=== PATIENT | female | born 1940 | race Caucasian/White ===

== ENCOUNTER 2023-08-07 14:42 | Outpatient (AMB) | payer OTHER, SELFPAY ==
--- NOTE | 2023-08-07 15:09 | MHC.OFFVIS ---
Intake Vital Signs 08/07/23 15:11 Weight 197 lb 4 oz BP 130/62 Blood Pressure Location Rt brachial Position Sitting Pulse 63 Pulse Source Pulse Oximeter Pulse Oximetry (%) 97 Oxygen Delivery Method Room Air Intake Visit Reasons: NPV-Dementia/stroketia/headaches/sleep Intake Note: Pt presents today c concerns of dementia x3 years. Pts daughter notices it worsens the most at night. Pt is not sleeping well at night but does sleep during the day. Pt has shown no decrease to appetite . Allergies No Known Allergies Allergy (Verified 08/07/23 15:15) Medication List - Last Reconciled 08/07/23 by LUCERO Hearn atorvastatin 80 mg PO DAILY losartan 100 mg PO DAILY memantine 10 mg PO DAILY omeprazole 20 mg PO DAILY propranolol 20 mg PO DAILY HPI HPI Comments History of Present Illness Details Right-handed 82-yr-old female presents for neurological evaluation of: cognitive difficulties. Accompanied by pt's dtr, Yaneth. Pt's dtr states that pt had a stroke about 5 yrs ago w/o any significant residual effects. Then, about 3yrs ago, pt started having cognitive difficulties.. She started forgetting small things. Then over time, she started saying things that were not making sense, repeating herself. Now, she can have good and bad days, 2-3 days a week she is much more confused. She used to live in [place], but moved in with her dtr about 6 months ago here in [facility]. She lives with her family. She needs assist with ADLs. At times, she does not want to take baths or showers. She no longer cooks- as she leaving the stove on- causing things to burn. She needs assist with her finances. She has had falls when she was in [place]- she would take a shower at 3-4 am. But not since. She does not like the colder weather here. She is prone to sleep during the day and is more awake at night. She can easily become frustrated. She is not physically active. She states she eats and drinks well. Patient endorses: She has had migraine since her late 20s- now has a daily headache and 3 migraine headache days per week. She takes 2 Tylenol bid every day. She has difficulty explaining- but describes headache as strong pain, some vision changes, photo/phonophobia, nausea. She is sometimes dizzy, especially if standing. She has urinary incontinence- states does not make it to the bathroom in time. About 1 yr ago when she was visiting her dtr here, she had an acute episode of staring off, eyes rolled, and foaming at the mouth. Per dtr- ER did not know what caused this. EEG was normal. 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 but she went back to [place] and never saw neurology. She did see cardiology- they did not think there was any cardiogenic etiology however donepazil and amlodipine were stopped. She has not had another episode since. Sometimes her speech will turn very slow. She was born in [place]. She reports normal early growth and development. She left school in 6th grade to help with the housework and childcare. 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 [place] moved to the [place] ago. Maybe she worked for a year here in the [place]. She believes her father had dementia. 07/2023, MRI Brain W+W/O Contrast FINDINGS: The flow voids through the kiana of [place] are maintained, and there is no restricted diffusion. Multiple small foci of susceptibility artifact are distributed throughout the cerebral hemispheres predominantly involving hahn-white matter interfaces. Sparing of the basal ganglia and thalami. A chronic right corpus striatal infarct is present, and there are mild-moderate patchy and discrete T2 bright foci distributed throughout the supratentorial white matter. Mild prominence of the ventricles and subarachnoid spaces. No mass effect or extra-axial fluid collection. The major dural venous sinuses are patent. There is a 4 mm x 3 mm anteriorly and superiorly oriented outpouching of contrast enhancement arising from the anterior communicating artery. The visualized extracranial soft tissues and orbital structures are unremarkable. IMPRESSION: 1. No acute infarct. 2. Chronic right corpus striatal infarct. 3. Mild-moderate supratentorial white matter signal abnormality compatible with chronic microangiopathic/small vessel ischemic change. 4. 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 Neurointerventional follow-up is recommended. 5. Multiple small foci of susceptibility artifact are present within the cerebral hemispheres with sparing of the basal ganglia and thalami. While these may represent chronic microhemorrhage related to hypertension, the distribution of lesions suggests amyloid angiopathy. 07/2023, Echocardiogram Summary 1. The left ventricle is normal in size, wall thickness and systolic function. The ejection fraction is 60-65%. No regional wall motion abnormalities seen. Unable to assess diastolic function due to technical limitation. 2. The right ventricular size and function appears grossly normal. The pulmonary artery systolic pressure estimation is within normal limits. 3. There is no hemodynamically significant valvular disease. [facility] Medical History (Updated 08/07/23 @ 17:11 by LUCERO Hearn) Anemia HTN (hypertension) GERD (gastroesophageal reflux disease) TIA (transient ischemic attack) HLD (hyperlipidemia) CKD (chronic kidney disease) Family History Mother Liver cancer Social History Alcohol intake: never Patient Tobacco Use Status: Never used Tobacco Review of Systems Const Details: See scanned ROS form Physical Exam Vital Signs: Last Vital Signs Pulse 63 08/07/23 15:11 BP 130/62 08/07/23 15:11 Pulse Ox 97 08/07/23 15:11 Oxygen Delivery Method Room Air 08/07/23 15:11 Const General: cooperative and no acute distress HEENT Head: Yes normocephalic Resp Effort & Inspection: normal respiratory effort and able to speak in complete sentences Neuro Other: Alert, oriented to person. Pt responds appropriately, but defers complex questions to her dtr She is able to follow commands through exam, although at times needs clarification/reinforcement- ie w/ cheek puff test, strength testing Slow to stand, short steps, steady gait General: CN's II-XI intact bilaterally and deep tendon reflexes 2+ bilaterally Motor exam (neuro): 5/5 motor strength present throughout Psych Appearance: grossly normal Speech and movement: Normal speech and movement present Affect: normal affect Attitude: cooperative Orientation Where are we (state) (county) (town or city) (hospital) (floor)?: county and town or city Registration Name of 3 unrelated objects clearly and slowly, then ask patient to repeat all 3 of them. (1st repeat determines score. Make sure they can repeat all three): object 1, object 2 and object 3 Recall Ask patient to repeat the 3 items from question #3.: object 1 Language Show patient a wristwatch & ask what it is. Repeat for pencil.: watch Ask the patient to 'take a piece of paper with their right hand' 'fold paper in half' 'place paper on floor': take paper in right hand and fold paper in half Print the sentence 'CLOSE YOUR EYES' on a piece. If patient actually closes eyes then score.: followed written direction Give patient a blank piece of paper & ask to write a sentence. Score if it contains a noun & verb.: sentence contains subject and verb Score Score: 11 Assessment & Plan Assessment & Plan (1) Dementia: Comment: ? Alzheimer's, ? Vascular dementia, ? mixed demntia Code(s): F03.90 - Unspecified dementia, unspecified severity, without behavioral disturbance, psychotic disturbance, mood disturbance, and anxiety (2) Aneurysm of anterior communicating artery: Comment: 4. 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 Code(s): R90.89 - Other abnormal findings on diagnostic imaging of central nervous system (4) Chronic migraine without aura: Code(s): G43.709 - Chronic migraine without aura, not intractable, without status migrainosus (5) Spell of change in speech: Code(s): R47.89 - Other speech disturbances Plan Note MMSE score of 12/30 is actually 12/29 (omitted repeat phrase task- as this does not translate well into Tongan) Will check labs for common etiologies of dementia s/s. Pt advised to undergo f/u brain MRI to assess status of supratentorial white matter signal abnormality Pt advised to undergo brain MRA to assess status of LATRICIA aneurysm. Will check EEG- d/t h/o episode of AMS/syncope and episodes of slowed speech. Increase Memantine from 10mg IR qd dose to 21mg ER qd dose. Information shared on dementia resources. Trial Ubrogepant (Ubrelvy) 100mg tab, 1/2 - 1 tab (50-100mg) at onset of headache, may repeat in 2 hours. Max of 2 tabs (200mg) per 24 hours. May adjunct with OTC Tylenol 650mg q 4 hours. Triptans contraindicated d/t h/o stroke, HTN, HLD. f/u upon reveiw of above and in clinic in 3-4 months or sooner prn. Orders: Orders Syphilis Screen Today D64.9 - Anemia, unspecified, F03.90 - Unspecified dementia, unspecified severity, without behavioral disturbance, psychotic disturbance, mood disturbance, and anxiety, G43.709 - Chronic migraine without aura, not intractable, without status migrainosus, I10 - Essential (primary) hypertension, N18.9 - Chronic kidney disease, unspecified Methylmalonic Acid Today D64.9 - Anemia, unspecified, F03.90 - Unspecified dementia, unspecified severity, without behavioral disturbance, psychotic disturbance, mood disturbance, and anxiety, G43.709 - Chronic migraine without aura, not intractable, without status migrainosus, I10 - Essential (primary) hypertension, N18.9 - Chronic kidney disease, unspecified Homocysteine Today D64.9 - Anemia, unspecified, F03.90 - Unspecified dementia, unspecified severity, without behavioral disturbance, psychotic disturbance, mood disturbance, and anxiety, G43.709 - Chronic migraine without aura, not intractable, without status migrainosus, I10 - Essential (primary) hypertension, N18.9 - Chronic kidney disease, unspecified Erythrocyte Sedimentation Rate Today D64.9 - Anemia, unspecified, F03.90 - Unspecified dementia, unspecified severity, without behavioral disturbance, psychotic disturbance, mood disturbance, and anxiety, G43.709 - Chronic migraine without aura, not intractable, without status migrainosus, I10 - Essential (primary) hypertension, N18.9 - Chronic kidney disease, unspecified CRP High Sensitivity Today D64.9 - Anemia, unspecified, F03.90 - Unspecified dementia, unspecified severity, without behavioral disturbance, psychotic disturbance, mood disturbance, and anxiety, G43.709 - Chronic migraine without aura, not intractable, without status migrainosus, I10 - Essential (primary) hypertension, N18.9 - Chronic kidney disease, unspecified HIV Ab/Ag Today D64.9 - Anemia, unspecified, F03.90 - Unspecified dementia, unspecified severity, without behavioral disturbance, psychotic disturbance, mood disturbance, and anxiety, G43.709 - Chronic migraine without aura, not intractable, without status migrainosus, I10 - Essential (primary) hypertension, N18.9 - Chronic kidney disease, unspecified Comprehensive Met. Panel Today D64.9 - Anemia, unspecified, F03.90 - Unspecified dementia, unspecified severity, without behavioral disturbance, psychotic disturbance, mood disturbance, and anxiety, G43.709 - Chronic migraine without aura, not intractable, without status migrainosus, I10 - Essential (primary) hypertension, N18.9 - Chronic kidney disease, unspecified Complete Blood Count Auto Diff Today D64.9 - Anemia, unspecified, F03.90 - Unspecified dementia, unspecified severity, without behavioral disturbance, psychotic disturbance, mood disturbance, and anxiety, G43.709 - Chronic migraine without aura, not intractable, without status migrainosus, I10 - Essential (primary) hypertension, N18.9 - Chronic kidney disease, unspecified Vitamin B12 and Folate Today D64.9 - Anemia, unspecified, F03.90 - Unspecified dementia, unspecified severity, without behavioral disturbance, psychotic disturbance, mood disturbance, and anxiety, G43.709 - Chronic migraine without aura, not intractable, without status migrainosus, I10 - Essential (primary) hypertension, N18.9 - Chronic kidney disease, unspecified TSH reflex Free T4 Today D64.9 - Anemia, unspecified, F03.90 - Unspecified dementia, unspecified severity, without behavioral disturbance, psychotic disturbance, mood disturbance, and anxiety, G43.709 - Chronic migraine without aura, not intractable, without status migrainosus, I10 - Essential (primary) hypertension, N18.9 - Chronic kidney disease, unspecified Hemoglobin A1c Today D64.9 - Anemia, unspecified, F03.90 - Unspecified dementia, unspecified severity, without behavioral disturbance, psychotic disturbance, mood disturbance, and anxiety, G43.709 - Chronic migraine without aura, not intractable, without status migrainosus, I10 - Essential (primary) hypertension, N18.9 - Chronic kidney disease, unspecified YULISSA Reflex Titer and Pattern Today D64.9 - Anemia, unspecified, F03.90 - Unspecified dementia, unspecified severity, without behavioral disturbance, psychotic disturbance, mood disturbance, and anxiety, G43.709 - Chronic migraine without aura, not intractable, without status migrainosus, I10 - Essential (primary) hypertension, N18.9 - Chronic kidney disease, unspecified Rheumatoid Factor Today D64.9 - Anemia, unspecified, F03.90 - Unspecified dementia, unspecified severity, without behavioral disturbance, psychotic disturbance, mood disturbance, and anxiety, G43.709 - Chronic migraine without aura, not intractable, without status migrainosus, I10 - Essential (primary) hypertension, N18.9 - Chronic kidney disease, unspecified MR angio head wo con Today F03.90 - Unspecified dementia, unspecified severity, without behavioral disturbance, psychotic disturbance, mood disturbance, and anxiety, G43.709 - Chronic migraine without aura, not intractable, without status migrainosus, G45.9 - Transient cerebral ischemic attack, unspecified, I67.1 - Cerebral aneurysm, nonruptured, R90.89 - Other abnormal findings on diagnostic imaging of central nervous system MR head/brain wo/w con Today F03.90 - Unspecified dementia, unspecified severity, without behavioral disturbance, psychotic disturbance, mood disturbance, and anxiety, G43.709 - Chronic migraine without aura, not intractable, without status migrainosus, G45.9 - Transient cerebral ischemic attack, unspecified, I67.1 - Cerebral aneurysm, nonruptured, R90.89 - Other abnormal findings on diagnostic imaging of central nervous system EEG electroencephalogram Today F03.90 - Unspecified dementia, unspecified severity, without behavioral disturbance, psychotic disturbance, mood disturbance, and anxiety, R47.89 - Other speech disturbances Medications: New ubrogepant (Ubrelvy) take at onset of migraine, may repeat in 2hrs (may take w/ Ibuprofen) 50 - 100 mg (0.5 - 1 x 100 mg) PO ONCE 30 days PRN 16 tabs 3RF migraine headache memantine then stop and increase to 28mg qd 21 mg PO DAILY 90 days 90 ea 1RF Coding Level of Care Code New Pt Level 4 (10060) Diagnoses Dementia F03.90 Aneurysm of anterior communicating artery I67.1 Abnormal finding on MRI of brain R90.89 Chronic migraine without aura G43.709 Spell of change in speech R47.89
[2023-08-07 15:11] VITALS: BP 130/62; PULSE 63; O2SAT 97
== END 2023-08-07 16:22 | disposition home or self-care (01) ==
PROVIDERS: PCP Nurse Practitioner Adult Health; Visit Provider Nurse Practitioner Family
DX: F03.90 Unspecified dementia, unspecified severity, without behavioral disturbance, psychotic disturbance, mood disturbance, and anxiety (principal); I67.1 Cerebral aneurysm, nonruptured; R90.89 Other abnormal findings on diagnostic imaging of central nervous system; G43.709 Chronic migraine without aura, not intractable, without status migrainosus; R47.89 Other speech disturbances
CPT/HCPCS: 99204

== ENCOUNTER → 2023-08-07 14:42 | Outpatient (BNVA) | payer OTHER, SELFPAY | PROVIDERS: PCP Nurse Practitioner Adult Health; Visit Provider Nurse Practitioner Family ==